=== PATIENT | male | born 1980 | race Caucasian/White ===

== ENCOUNTER 2018-05-17 12:23 | Inpatient (IN) | payer OTHER ==
[2018-05-17] MEDS ORDERED: Acetaminophen 500 MG TAB ONE (12:50)
[2018-05-17] MEDS ORDERED: Sodium Chloride 0.9% 100 ML ONE (12:50)
[2018-05-17] MEDS ORDERED: cefTRIAXone\\ROCEPHIN 2 GM VIAL ONE (12:50)
[2018-05-17 12:59] LABS: Bilirubin Negative (Negative); Blood, Urine Large (Negative); Glucose, Urine (Dipstick) Negative (Negative); Leukocyte Small (Negative); Nitrite Negative (Negative); Protein, Urine (Dipstick) 100 mg/dL (Neg-Trace); Urobilinogen 0.2 mg/dL (0.2-1.0); pH, Urine 7.5 (5.0-9.0)
[2018-05-17 13:03] LABS: Clarity Hazy (Clear)
[2018-05-17 13:09] LABS: Hemoglobin 15.1 g/dL (14.0-18.0); Mean Corpuscular HGB CONC 33.8 g/dL (32.0-36.0); Mean Corpuscular Hemoglobin 26.9 pg (27.0-31.0); Mean Corpuscular Volume 79.4 fL (78.0-98.0); Platelet Count 200 thou/uL (130-400); RBC Distribution Width 12.2 % (11.5-14.5); Red Blood Cell (RBC) Count 5.61 mill/uL (4.70-6.10)
[2018-05-17] MEDS ORDERED: Gentamicin 80 MG/2 ML VIAL ONE ×2 (13:10→13:37)
[2018-05-17 13:12] LABS: Bacteria/HPF 2+ HPF (None Seen); Squamous Epithelial 0-3 HPF (0-3)
[2018-05-17 13:18] LABS: ALT (SGPT) 42 U/L (8-55); AST (SGOT) 18 U/L (5-34); Albumin 4.4 g/dL (3.5-5.0); Alkaline Phosphatase 111 U/L (40-150); Anion Gap 14 mmol/L (10-20); BUN (Urea Nitrogen) 10 mg/dL (8.9-20.6); Calc. Creatinine Clearance 0 mL/min (70-130); Calcium 9.7 mg/dL (7.8-10.44); Carbon Dioxide 24 mmol/L (22-29); Chloride 103 mmol/L (98-107); Estimated GFR-MDRD Greater than 90; Globulin 3.2 g/dL (2.4-3.5); Glucose 91 mg/dL (70-105); Potassium 3.9 mmol/L (3.5-5.1); Protein, Total 7.6 g/dL (6.0-8.3); Sodium 137 mmol/L (136-145)
[2018-05-17 13:19] LABS: Band 2 % (5-11); Eosinophils 1 % (0-10); Lymphocytes 6 % (21-51); MDiff Complete? YES; Monocytes 7 % (0-10); Neutrophil 84 % (42-75); PLT Morphology Comment Appears Adequate; Stomatocytes SLIGHT = 2-5 cells (100X) (0-1/hpf)
--- NOTE | 2018-05-17 14:29 | RAD ---
RADIOGRAPH CHEST 2 VIEWS: HISTORY: A 37-year-old male with a cough and fever. FINDINGS: There is no air space density, pulmonary edema, pleural effusion, pneumothorax, or cardiomegaly. IMPRESSION: No acute cardiopulmonary findings. jn [] POS: [facility]
--- NOTE | 2018-05-17 14:30 | ULT ---
ULTRASOUND URINARY BLADDER: DATE: 05/17/18. HISTORY: A 37-year-old male with urinary retention. FINDINGS: Prevoid bladder volume is 175 mL. Postvoid bladder volume is 45 mL. Mild bladder wall thickening up to 0.7 cm. IMPRESSION: Incomplete micturition. POS: [facility]
[2018-05-17 15:34] VITALS: BMI 45.6
[2018-05-17] MEDS ORDERED: Acetaminophen 325 MG TAB PO PRN ×2 (17:08→18:48)
[2018-05-17] MEDS ORDERED: Sodium Chloride 0.9% 1,000 ML IV SCH (17:15)
[2018-05-17] MEDS ORDERED: Acetaminophen 650 MG Suppository PR PRN (18:48)
[2018-05-17] MEDS ORDERED: Bisacodyl 5 MG TAB PO PRN (18:48)
[2018-05-17] MEDS ORDERED: Melatonin 3 MG TAB PO PRN (18:59)
[2018-05-17] MEDS ORDERED: Vancomycin HCl 1 GM in Premix Bag 1 BAG IVPB SCH (19:00)
--- NOTE | 2018-05-17 19:24 | HP ---
PRIMARY CARE PROVIDER: None. CHIEF COMPLAINT: Difficulty urinating. HISTORY OF PRESENT ILLNESS: Mr. Darden is a pleasant 37-year-old gentleman who was seen at [facility] on 05/17/2018 following transfer from [facility]. He reports that he was treated for a sinus infection a couple of weeks ago. He reports cough for the last 2 weeks. He reports that the antibiotic may have been amoxicillin or Augmentin. He completed antibiotic treatment 6 days ago. He denies any vomiting or diarrhea. He denies any chest pain or sh ortness of breath. He reports a nonproductive cough at this time. He went to bed with chills last night. Around 1:45 a.m. today, he woke up to urinate. He had diffic ulty urinating and became diaphoretic. He took ibuprofen without any relief. He also reports having fever with his symptoms. He went to the emergency room because of urinary retention. He denies hav ing urinary retention in the past. He reports that when he relaxes, he can produce a dribble of urin e. He reports pressure at his prostate. REVIEW OF SYSTEMS: All other systems reviewed and found to be negative. PAST MEDICAL HISTORY: Psoriasis, leg wounds. PAST SURGICAL HISTORY: Left foot surgery and right fourth finger repair. SOCIAL HISTORY: The patient drinks alcohol over the weekends. He smokes 1 pack of cigarettes a day. He denies recreational drug use. FAMILY HISTORY: Significant for myocardial infarction in his father. ALLERGIES: No known drug allergies. CURRENT MEDICATIONS: None. PHYSICAL EXAMINATION: GENERAL: On examination, Mr. Darden is awake and alert, not in acute distress. VITAL SIGNS: Blood pressure is 130/82, pulse 101, respiratory rate 14, and oxygen saturation 92% on room air, temperature is 99.8 degrees Fahrenheit. At [facility], he had a pulse of 111, respiratory rate of 24, and T-max of 101.7 degrees Fahrenheit. He is morbidly obese, w ith BMI of 45.6. EYES: No scleral icterus. No conjunctival pallor. ENT: Moist mucosal membranes, no oropharyngeal erythema or exudates. NECK: Supple, nontender, trachea is midline. RESPIRATORY: Accessory muscles of breathing are not active. Chest wall movements are symmetric bila terally. LUNGS: Clear to auscultation without wheeze, rhonchi or crepitations. CARDIOVASCULAR: S1 and S2 are heard, tachycardic and regular. Peripheral pulses palpable. No carot id bruit, no pericardial rub. ABDOMEN: Soft, distended, nontender, bowel sounds heard. SKIN: Bilateral lower extremity edema, no rashes or subcutaneous nodules. MUSCULOSKELETAL: Power is 5/5 in all 4 extremities. NEUROLOGIC: Cranial nerves II-XII intact. Deep tendon reflexes are 2+. LYMPHATIC: No cervical lymphadenopathy. PSYCHIATRIC: Normal mood, normal affect, patient is oriented to person, place, and time. LABORATORY DATA: Mr. Darden's labs and investigations were reviewed. He has leukocytosis with 20,000 white cells, of which 84% are neutrophils, normal hemoglobin, normal platelet count, normal comprehe nsive metabolic profile, and urinalysis that is positive for protein, blood, and small amount of leuk ocyte esterase. ASSESSMENT AND PLAN: Mr. Darden is a pleasant 37-year-old gentleman who was seen at [facility] on 05/17/2018. His problem list includes: 1. Sepsis: Mr. Darden is presenting with sepsis, most likely secondary to acute bacterial prostatiti s. However, other etiologies including bacteremia cannot be ruled out at this point. In the past, masoud sal has had infections with multidrug resistant organisms, MRSA from leg and axillary cultures. He als o had near culture that was positive for Pseudomonas aeruginosa in the past. He has been started on vancomycin and ceftriaxone, which I will continue. Will await cultures. We will also consult Urolog y Service for opinion and help with management. 2. Morbid obesity: We will consult dietitian for dietary counseling. 3. Tobacco abuse: Patient has been counseled regarding tobacco cessation. He has declined nicotine replacement therapy. LEVEL OF RISK: Moderate. LEVEL OF COMPLEXITY: Moderate.
[2018-05-17] MEDS: Sodium Chloride 0.9% 1,000 ML IV SCH (19:40)
[2018-05-18 05:10] LABS: #Lymphocytes 2.1 thou/uL (1.20-3.40); #Monocytes 1.1 thou/uL (0.11-0.59); #Neutrophils 13.7 thou/uL (1.40-6.50); %Eosinophils 0.2 % (0.0-10.0); %Lymphocytes 12.6 % (21.0-51.0); %Monocytes 6.3 % (0.0-10.0); %Neutrophils 80.8 % (42.0-75.0); Hemoglobin 13.5 g/dL (14.0-18.0); Mean Corpuscular HGB CONC 33.3 g/dL (32.0-36.0); Mean Corpuscular Hemoglobin 28.2 pg (27.0-31.0); Mean Corpuscular Volume 84.7 fL (78.0-98.0); Mean Platelet Volume 8.4 fL (7.4-10.4); Platelet Count 177 thou/uL (130-400); RBC Distribution Width 12.9 % (11.5-14.5); White Blood Cell (WBC) Count 16.9 thou/uL (4.8-10.8)
[2018-05-18 05:22] LABS: Anion Gap 12 mmol/L (10-20); BUN (Urea Nitrogen) 7 mg/dL (8.9-20.6); Calc. Creatinine Clearance 281 mL/min (70-130); Calcium 8.7 mg/dL (7.8-10.44); Carbon Dioxide 24 mmol/L (22-29); Chloride 105 mmol/L (98-107); Estimated GFR-MDRD Greater than 90; Glucose 115 mg/dL (70-105); Potassium 3.7 mmol/L (3.5-5.1); Sodium 137 mmol/L (136-145)
[2018-05-18] MEDS: Sodium Chloride 0.9% 1,000 ML IV SCH ×2 (08:53→22:20)
[2018-05-18] MEDS: Enoxaparin Sodium 40 MG/0.4 ML SYRINGE SC SCH (08:54)
[2018-05-18] MEDS ORDERED: cefTRIAXone\\ROCEPHIN 1 GM in Sodium Chloride 0.9% 100 ML IVPB SCH (13:00)
--- NOTE | 2018-05-18 17:16 | PDOC.PN ---
- Subjective Encounter Start Date: 05/18/18 Encounter Start Time: 09:40 Pt seen for followup re: sepsis. Feels better. No nausea, vomiting or diarrhea. No fevers or chills. - Objective MAR Reviewed: Yes Vital Signs & Weight: Vital Signs (12 hours) Temp Pulse Resp BP BP Pulse Ox 05/18/18 17:02 98.1 F 82 16 127/77 95 05/18/18 11:09 98.2 F 92 16 154/96 H 95 05/18/18 08:00 98.1 F 84 16 93 L 05/18/18 07:25 98.1 F 84 16 108/69 93 L Weight Admit Weight 336 lb 1.6 oz Weight 336 lb 1.6 oz I&O: 05/17/18 05/18/18 05/19/18 06:59 06:59 06:59 Intake Total 480 Balance 480 Result Diagrams: 05/18/18 04:21 05/18/18 04:21 Additional Labs: Labs reviewed by me Phys Exam - Physical Examination Morbid obesity HEENT: moist MMs, sclera anicteric, oral pharynx no lesions, 2+ tonsils Neck: no nodes, no JVD, supple, full ROM Respiratory: no wheezing, no rales, no rhonchi, clear to auscultation bilateral Cardiovascular: RRR, no rub S1, s2 Gastrointestinal: soft, non-tender, positive bowel sounds distention Musculoskeletal: edema present Neurological: moves all 4 limbs Psychiatric: normal affect, A&O x 3 Dx/Plan (1) Sepsis Code(s): A41.9 - SEPSIS, UNSPECIFIED ORGANISM Status: Acute Comment: secondary to acute bacterial prostatitis (2) Acute bacterial prostatitis Code(s): N41.0 - ACUTE PROSTATITIS Status: Acute Comment: Urine Cx growing G -ve rods, discontinue vancomycin, continue ceftriaxone (3) Morbid obesity Code(s): E66.01 - MORBID (SEVERE) OBESITY DUE TO EXCESS CALORIES Status: Chronic Comment: appreciate dietitian input (4) Tobacco abuse Code(s): Z72.0 - TOBACCO USE Status: Chronic Comment: pt counseled re: tobacco cessation - Plan * . Review of Systems - Review of Systems Constitutional: negative: fever, chills, sweats, weakness, malaise Respiratory: negative: Cough, Shortness of Breath, SOB with Excertion, Pleuritic Pain, Wheezing Cardiovascular: negative: chest pain, palpitations, orthopnea, paroxysmal nocturnal dyspnea, edema, light headedness Gastrointestinal: negative: Nausea, Vomiting, Abdominal Pain, Diarrhea, Constipation, Melena, Hematochezia Genitourinary: negative: Dysuria, Frequency, Incontinence, Hematuria, Retention Skin: negative: Rash, Lesions, Dion, Bruising - Medications/Allergies Allergies/Adverse Reactions: Allergies Allergy/AdvReac Type Severity Reaction Status Date / Time No Known Allergies Allergy Unverified 05/17/18 15:18 Medications: Current Medications Acetaminophen (Tylenol) 650 mg PO Q4H PRN PRN Reason: Headache/Fever or Pain Last Admin: 05/18/18 11:05 Dose: 650 mg Acetaminophen (Tylenol) 650 mg NC Q4H PRN PRN Reason: Headache/Fever or Pain Bisacodyl (Dulcolax) 10 mg PO DAILYPRN PRN PRN Reason: Constipation Enoxaparin Sodium (Lovenox) 40 mg SC 0900 [facility] Last Admin: 05/18/18 08:54 Dose: Not Given Ceftriaxone Sodium 1 gm/ (Sodium Chloride) 100 mls @ 200 mls/hr IVPB 1300 [facility] Last Admin: 05/18/18 14:30 Dose: 100 mls Sodium Chloride (Normal Saline 0.9%) 1,000 mls @ 75 mls/hr IV .[id number] [facility] Last Admin: 05/18/18 08:53 Dose: 1,000 mls Melatonin (Melatonin) 3 mg PO HS PRN PRN Reason: Insomnia Last Admin: 05/17/18 20:18 Dose: 3 mg Miscellaneous Medication (Pharmacy To Dose) 1 each IVPB ONE PRN PRN Reason: Pharmacy to dose Stop: 06/16/18 18:47 Sodium Chloride (Flush - Normal Saline) 10 ml IVF Q12HR [facility] Last Admin: 05/18/18 09:06 Dose: Not Given Sodium Chloride (Flush - Normal Saline) 10 ml IVF PRN PRN PRN Reason: Saline Flush
--- NOTE | 2018-05-18 22:05 | CON ---
DATE OF CONSULTATION: 05/18/2018 REASON FOR CONSULTATION: Urinary tract infection. HISTORY OF PRESENT ILLNESS: Mr. Darden is a 37-year-old gentleman who presented to the hospital on 05/17/2018 with acute onset of fever, chills, and difficulty voiding. He presented to the emergency room after these symptoms became quite severe over a short period of time. He was initially seen at the [facility] and then transferred to [facility], where he was admitted for prostatitis. He has a urine culture pending, but is positive. He is on antibiotic therapy and much improved at this point. His urination is improved and he has minimal dysuria at this time. He said he urinated every few minutes and he is now urinating approximately every 2 hours. He has no prior urologic history. He denies any prior history of stone disease. A bladder scan has been performed and demonstrates good bladder emptying with a residual 45 mL. PAST MEDICAL HISTORY: Staph infection of the leg, psoriasis. PAST SURGICAL HISTORY: Left leg skin grafting, right fourth finger repair. SOCIAL HISTORY: He smokes 1 pack of cigarettes per day. Denies excessive alcohol use, although he does drink on the weekends. He works in the [employer] industry. ALLERGIES: No known drug allergies. CURRENT MEDICATIONS: None. PHYSICAL EXAMINATION: GENERAL: He is obese. He is in no distress. HEENT: Normocephalic, atraumatic. NECK: Supple without masses. CHEST: Clear to auscultation. CARDIOVASCULAR: Regular rate and rhythm. ABDOMEN: Soft, nontender. No palpable masses. Liver and spleen are not palpable. No abdominal tenderness noted. GENITOURINARY: Penis without lesions. Urethral meatus was normal. Scrotum, no lesions. LABORATORY DATA: WBC 20,000. Urine culture was positive for gram-negative rods. IMPRESSION: Mr. Darden is a 37-year-old gentleman with signs and symptoms consistent with acute prostatitis. Definitive culture results are not available at this time. He has improved significantly on his IV antibiotics RECOMMENDATIONS: 6-week course of oral antibiotic therapy when culture results have been finalized and culture-specific antibiotic therapy can be initiated. [facility] CENTERDorys
[2018-05-19 05:08] LABS: #Eosinphils 0.2 thou/uL (0.0-0.7); #Monocytes 0.9 thou/uL (0.11-0.59); #Neutrophils 8.7 thou/uL (1.40-6.50); %Eosinophils 1.6 % (0.0-10.0); %Lymphocytes 16.8 % (21.0-51.0); %Monocytes 7.2 % (0.0-10.0); %Neutrophils 74.3 % (42.0-75.0); Hemoglobin 13.4 g/dL (14.0-18.0); Mean Corpuscular HGB CONC 32.9 g/dL (32.0-36.0); Mean Corpuscular Hemoglobin 28.1 pg (27.0-31.0); Mean Corpuscular Volume 85.3 fL (78.0-98.0); Mean Platelet Volume 8.5 fL (7.4-10.4); Platelet Count 175 thou/uL (130-400); RBC Distribution Width 12.8 % (11.5-14.5); Red Blood Cell (RBC) Count 4.78 mill/uL (4.70-6.10); White Blood Cell (WBC) Count 11.8 thou/uL (4.8-10.8)
[2018-05-19 05:31] LABS: Anion Gap 12 mmol/L (10-20); BUN (Urea Nitrogen) 11 mg/dL (8.9-20.6); Calc. Creatinine Clearance 271 mL/min (70-130); Calcium 9.3 mg/dL (7.8-10.44); Carbon Dioxide 26 mmol/L (22-29); Chloride 106 mmol/L (98-107); Estimated GFR-MDRD Greater than 90; Glucose 115 mg/dL (70-105); Potassium 3.8 mmol/L (3.5-5.1); Sodium 140 mmol/L (136-145)
[2018-05-19 08:04] VITALS: BP 158/85; TEMP 98.2
[2018-05-19] MEDS: Enoxaparin Sodium 40 MG/0.4 ML SYRINGE SC SCH (09:04)
--- NOTE | 2018-05-19 12:29 | DIS ---
PRIMARY CARE PHYSICIAN: None. DATE OF ADMISSION: 05/17/2018 DATE OF DISCHARGE: 05/19/2018 DISCHARGE DIAGNOSES: 1. Sepsis. 2. Acute bacterial prostatitis secondary to Escherichia coli resistant to ampicillin, gentamicin, an d trimethoprim/sulfamethoxazole, intermediate sensitivity to tobramycin and ampicillin/sulbactam and sensitive to amikacin, cefepime, Cefoxitin, ceftazidime, ceftriaxone, ciprofloxacin, levofloxacin, me ropenem, nitrofurantoin and piperacillin/tazobactam. CONDITION OF PATIENT ON THE DAY OF DISCHARGE: Stable. I assessed Mr. Darden on the day of discharge. He denies any chest pain or shortness of breath. He denies any fevers or chills. Vital signs are stable. S1 and S2 are heard, regular. Lungs are clear to auscultation bilaterally. DISCHARGE MEDICATIONS: Aspirin 81 mg as needed, ciprofloxacin 500 mg 2 times a day for 6 weeks. CONSULTATIONS DURING THIS HOSPITALIZATION: Urology, Dr. Ignacio RIVERTON HOSPITAL COURSE: Mr. Darden is a pleasant 37-year-old gentleman who was admitted to [facility] on 05/17/2018 for sepsis secondary to acute bacterial prostatitis. He was started o n broad spectrum intravenous antibiotics. Urine cultures grew Escherichia coli with sensitivity nataliya erns as described above. He is being discharged home with 6 weeks of ciprofloxacin. He is advised t o follow up with Urology Service. He is also advised to find a primary care provider for reevaluatio n. He has been advised to stop smoking. On the day of discharge, he has white count of 11,800, hemoglobin 13.4, platelet count 175,000, dontae l electrolytes and normal creatinine. DISCHARGE DESTINATION: Home. TOTAL AMOUNT OF TIME SPENT COORDINATING THIS DISCHARGE: 34 minutes.
== END 2018-05-19 12:27 | disposition home or self-care (01) | DRG 872 ==
LOC: SCSER 12:23 → T4-A 15:18
PROVIDERS: ADMIT Internal Medicine; ATTEND Internal Medicine
DX: A41.9 Sepsis, unspecified organism (principal); N41.0 Acute prostatitis; Z68.42 Body mass index [BMI] 45.0-49.9, adult; E66.01 Morbid (severe) obesity due to excess calories; F17.210 Nicotine dependence, cigarettes, uncomplicated; R39.14 Feeling of incomplete bladder emptying; L40.9 Psoriasis, unspecified; B96.20 Unspecified Escherichia coli [E. coli] as the cause of diseases classified elsewhere; Z16.11 Resistance to penicillins; Z16.29 Resistance to other single specified antibiotic
CPT/HCPCS: 36415; 71046; 76856; 80048; 80053; 81003; 81015; 83605; 85025; 87040; 87077; 87086; 87186; 94760; 96365; 96367; 96375; A4216; J0696; J1580; J1650; J3370; J7050